=== PATIENT | female | born 1990 | race Caucasian/White ===

== ENCOUNTER → 2017-10-08 | Outpatient (CLI) | payer OTHER ==
[~2017-10-08] MED LIST: MULT-506 PO
== END | disposition home or self-care (01) ==
LOC: C.PAPS 16:22
PROVIDERS: ATTEND Obstetrics & Gynecology
DX: Z34.91 Encounter for supervision of normal pregnancy, unspecified, first trimester (principal)

== ENCOUNTER → 2017-10-08 | Outpatient (CLI) | payer OTHER ==
[2017-10-08 14:55] LABS: BASO % 0.2 %; BASO ABS # 0.02 K/uL (0-0.2); EOS % 0.2 %; EOS ABS # 0.02 K/uL (0-0.5); HEMATOCRIT 37.9 % (37-47); HEMOGLOBIN 13.4 g/dL (12.0-16.0); IG# 0.03 K/uL (0.00-0.02); LYMPH % 22.5 %; LYMPH ABS # 2.07 K/uL (1.2-3.4); MEAN CELL VOLUME 92.2 fL (80-100); MEAN CORPUSCULAR HEMOGLOBIN 32.6 pg (25-34); MEAN CORPUSCULAR HGB CONC 35.4 g/dl (32-36); MEAN PLATELET VOLUME 10.8 fL (7.4-10.4); MONO % 6.1 %; MONO ABS # 0.56 K/uL (0.11-0.59); NEUT % 70.7 %; NEUT ABS # 6.51 K/uL (1.4-6.5); PLATELET COUNT 324 K/uL (130-400); RED CELL DISTRIBUTION WIDTH CV 12.7 % (11.5-14.5); RED CELL DISTRIBUTION WIDTH SD 42.9 fL (36.4-46.3); WHITE BLOOD COUNT 9.21 K/uL (4.8-10.8)
== END | disposition home or self-care (01) ==
LOC: C.LAB1850 13:42
PROVIDERS: ATTEND Obstetrics & Gynecology
DX: Z34.91 Encounter for supervision of normal pregnancy, unspecified, first trimester (principal)

== ENCOUNTER → 2017-10-29 | Outpatient (CLI) | payer OTHER | END | disposition home or self-care (01) | LOC: C.LAB1850 10:52 | PROVIDERS: ATTEND Obstetrics & Gynecology | DX: Z34.92 Encounter for supervision of normal pregnancy, unspecified, second trimester (principal) ==

== ENCOUNTER → 2018-01-21 | Outpatient (CLI) | payer OTHER | END | disposition home or self-care (01) | LOC: C.LABSPEC 12:54 | PROVIDERS: ATTEND Obstetrics & Gynecology | DX: Z34.92 Encounter for supervision of normal pregnancy, unspecified, second trimester (principal) ==

== ENCOUNTER → 2018-01-21 | Outpatient (CLI) | payer OTHER ==
[2018-01-21 12:25] LABS: HEMATOCRIT 34.9 % (37-47); HEMOGLOBIN 12.1 g/dL (12.0-16.0)
== END | disposition home or self-care (01) ==
LOC: C.LAB1850 10:33
PROVIDERS: ATTEND Obstetrics & Gynecology
DX: Z34.92 Encounter for supervision of normal pregnancy, unspecified, second trimester (principal)

== ENCOUNTER → 2018-03-20 | Outpatient (CLI) | payer OTHER | END | disposition home or self-care (01) | LOC: C.LABSPEC 13:39 | PROVIDERS: ATTEND Obstetrics & Gynecology | DX: Z34.93 Encounter for supervision of normal pregnancy, unspecified, third trimester (principal) ==

== ENCOUNTER 2018-04-13 21:50 | Inpatient (IN) | payer OTHER ==
[~2018-04-13] VITALS: Ht 162.6 cm; Wt 86.4 kg
[2018-04-13] MEDS ORDERED: LACTATED RINGER'S 1000ML 1,000 ML IV PRN (22:10)
[2018-04-13] MEDS ORDERED: LACTATED RINGER'S 1000ML 1,000 ML IV SCH (22:10)
[2018-04-13] MEDS ORDERED: PENICILLIN G POTASSIUM IV 6 MU in DEXTROSE 5% 250ML 250 ML IV ONE (22:15)
[2018-04-13] MEDS ORDERED: BUTORPHANOL TARTRATE 1 MG/ML VIAL IV ONE (22:30)
[2018-04-13 22:37] VITALS: Ht 162.6 cm; Wt 86.4 kg
[2018-04-13 22:52] LABS: HEMATOCRIT 33.4 % (37-47); HEMOGLOBIN 11.5 g/dL (12.0-16.0); MEAN CELL VOLUME 92.8 fL (80-100); MEAN CORPUSCULAR HEMOGLOBIN 31.9 pg (25-34); MEAN CORPUSCULAR HGB CONC 34.4 g/dl (32-36); PLATELET COUNT 287 K/uL (130-400); RED CELL DISTRIBUTION WIDTH CV 13.7 % (11.5-14.5); RED CELL DISTRIBUTION WIDTH SD 46.2 fL (36.4-46.3); WHITE BLOOD COUNT 15.89 K/uL (4.8-10.8)
[2018-04-13] MEDS ORDERED: EpHEDrine SULFATE INJ 50 MG/ML AMP ONE (22:59)
[2018-04-13] MEDS ORDERED: BUPIVACAINE 0.25% 30 ML VIAL ONE (22:59)
[2018-04-13] MEDS ORDERED: FENTANYL CITRATE INJ 50 MCG/1 ML 2 ML VIAL ONE (23:00)
[2018-04-13] MEDS ORDERED: FENTANYL 2MCG/ML ROPIV 1.25MG/ML 100ML BAG ONE (23:01)
[2018-04-13] MEDS ORDERED: NALOXONE HCL INJ 1 MG in SODIUM CHLORIDE 0.9% 1000ML 1,000 ML IV PRN (23:59)
[2018-04-13] MEDS ORDERED: LACTATED RINGER'S 1000ML 500 ML IV PRN (23:59)
[2018-04-14] MEDS ORDERED: ONDANSETRON INJ 2 MG/ML 2 ML VIAL IV PRN
[2018-04-14] MEDS ORDERED: NALOXONE HCL INJ 0.4 MG/1 ML VIAL/CARP IV PRN
[2018-04-14] MEDS ORDERED: DiphenhydrAMINE HCL 50 MG/ML VIAL IV PRN
[2018-04-14] MEDS ORDERED: NALBUPHINE HCL INJ 10 MG/ML 1ML AMP IV PRN
[2018-04-14] MEDS ORDERED: EpHEDrine SULFATE INJ 50 MG/ML AMP IV PRN
[2018-04-14] MEDS: PENICILLIN G POTASSIUM IV 3 MU in DEXTROSE 5% 100ML 100 ML IV PRN ×2 (02:40→06:59)
[2018-04-14] MEDS: FENTANYL 2MCG/ML ROPIV 1.25MG/ML 100ML BAG EPI PRN ×2 (07:01→07:37)
[2018-04-14] MEDS ORDERED: OXYTOCIN 30 UNITS/500ML NSS IV ONE (07:15)
[2018-04-14] MEDS ORDERED: SUPERCREAM 0.870 % 15GM JAR EXT PRN (10:45)
[2018-04-14] MEDS ORDERED: LANOLIN OINT EXT PRN (10:45)
[2018-04-14] MEDS ORDERED: HYDROCORTISONE ACETATE 25 MG SUPP PR PRN (10:45)
[2018-04-14] MEDS ORDERED: OXYTOCIN 30 UNITS/500ML NSS IV PRN (10:45)
[2018-04-14] MEDS ORDERED: DIPHTHERIA/TETANUS/PERTUSSIS 0.5 ML SYR/VIAL IM. ONE (10:45)
[2018-04-14] MEDS ORDERED: ACETAMINOPHEN/CODEINE 300/30MG TAB PO PRN (10:45)
[2018-04-14] MEDS ORDERED: BENZOCAINE 20% AER SPR 82.5 GM CAN EXT PRN (10:45)
[2018-04-14] MEDS: IBUPROFEN 600 MG TAB PO PRN ×3 (11:38→21:07)
--- NOTE | 2018-04-14 11:45 | DELIVERY SUMMARY ---
DATE OF OPERATION: 04/14/2018 DATE OF DELIVERY: 04/14/2018. FINDINGS: Viable male with terminal meconium. Arterial and venous cord gases pending. Placenta delivered spontaneously and sent for pathological evaluation. Midline second-degree laceration repaired in routine fashion. LABOR NOTE: The patient was a 27-year-old 2, para 0 with EDC of 04/16/2018 of 39 plus weeks gestational age who presented to labor and delivery in active labor. Patient denied ruptured membranes or vaginal bleeding. The patient has had a benign course. Laboratory values for the showed blood type of A negative, antibody negative, rubella immune, hepatitis B negative. She had normal 1-hour Glucola and a positive third trimester beta strep culture. Upon admission, patient was 5-6 cm dilated in active labor of very uncomfortable with category 1 tracing. Anesthesia was consulted and an epidural was placed. The patient progressed to full dilatation, had artificial ruptured membranes of clear fluid. Patient had no sensation to push and was allowed to labor down for 2 hours. Patient began her second stage and pushed for approximately 1 hour but had return of sensation and then refused to push. Anesthesia was consulted and her epidural was re-bolused and after approximately 2-hour delay, the patient restarted her second stage. She pushed for an additional 2 hours, delivering a viable male infant. Terminal meconium was noted at delivery, cord was clamped and cut and the baby was taken over to the resuscitation stand. Cord gases, cord blood samples obtained. Placenta was delivered spontaneously and sent for pathological evaluation. Inspection of the perineum showed a midline second-degree laceration which was repaired with 4-0 and 2-0 Vicryl in a routine fashion. Estimated blood loss for the delivery was 300 mL. Sponge and needle count was correct. I attest to the content of the Intraoperative Record and any orders documented therein. Any exception s are noted below.
--- NOTE | 2018-04-14 12:36 | Anesthesia Procedure Note ---
Anesthesia Epidural Removal Nt Date & Time Apr 14, 2018 at 12:36 Notes Mental Status: alert / awake / arousable, participated in evaluation Nausea / Vomiting: adequately controlled Pain: adequately controlled Airway Patency, RR, SpO2: stable & adequate BP & HR: stable & adequate Hydration State: stable & adequate Neuraxial Anesthesia: was administered Anesthetic Complications: no major complications apparent, pt satisfied with anesthetic care Epidural: removed without complications, with tip intact
[2018-04-14 13:00] VITALS: BP 118/72; PULSE 113; TEMP 36.9
--- NOTE | 2018-04-14 13:15 | Discharge Instructions ---
Discharge Instructions Date of Service Apr 14, 2018. Admission Reason for Admission: Normal Labor, With 39 Completed Weeks Ge Discharge Discharge Diagnosis / Problem: Vaginal Delivery Discharge Goals Goal(s): Routine recovery after delivery Medications Continue Dispensed Medications: supercream, dermaplast, tucks Activity Recommendations Activity Limitations: per Instructions/Follow-up section . Instructions / Follow-Up Instructions / Follow-Up ACTIVITY RECOMMENDATIONS: * Gradual return to full activity over the next 2-3 weeks. * No lifting - nothing heavier than baby over the next 2-3 weeks. * Do not engage in vigorous exercise, sexual activity or sports until cleared by your physician. * Do not drive or operate any motorized equipment until cleared by your physician. * You may shower/bathe daily. MEDICATIONS: For discomfort or pain, you may use Acetaminophen (Tylenol), Ibuprofen (Advil), or Naproxen (Aleve) following the package directions. For constipation you may use Colace following the package directions. BREAST CARE: If you are not breast feeding: * Wear a supportive bra 24 hours a day for one to two weeks. * Avoid stimulating your breasts and nipples as much as possible during the first few weeks after delivery. * When taking a shower, have the warm water hit your back, not breasts. * When your breasts feel full, apply ice packs. Usually three to four times a day helps ease the discomfort. * Take a mild pain medication (Tylenol / Motrin) when you are uncomfortable. If breast feeding: * Use breast milk to lubricate nipples. Lansinoh cream may be used for sore nipples. You do not need to remove cream prior to breast feeding. If using a different brand of cream, check the label for directions regarding removal of cream prior to nursing. * Wear a supportive bra. * If having problems with breasts or breast feeding, call a reimbursement consultant or your health care provider. EPISIOTOMY CARE: After delivery, if you have an episiotomy (stitches), the following steps will ease discomfort and aid healing. * For the first 24 hours after delivery, place ice packs next to your episiotomy to help reduce swelling. * After the first 24 hour-period, sitz baths, either portable or in the tub, are suggested. A shower with a shower arm sprayed over the episiotomy may be comforting. * Charity care should be done after each voiding and bowel movement. Squirt warm water from a plastic bottle over the perineum (region of the body between the anus and urinary opening) and pat dry. * Use Dermoplast to ease discomfort. Shake container. [place] directly over the episiotomy. Place a Tucks on a clean sanitary pad next to your episiotomy. SPECIAL CARE INSTRUCTIONS: When you are discharged from the hospital, it is important for you to follow the instructions listed below: * During the first week at home, you should be able to care for yourself and your baby. In addition, the usual light household activities are encouraged. * Limit your activities to the way you feel. Do not try to clean the house or move furniture. Be sensible. * If you actively engage in sports and have done so up until the time of your delivery, you may resume these activities as soon as you feel able. This may take up to one month or even longer. Use good judgment. * Continue to take your vitamins for at least six weeks after the of your baby. * Your diet need not be limited unless you were on a special diet before your delivery. Breast-feeding mothers need around 2500 calories per day and at least 64-80 ounces of fluid per day (8 to 10 glasses). * You should eat foods from the four major food groups. Crash diets or fad diets are to be avoided. Eating lean meats, fresh fruits and vegetables, low-fat dairy products, high fiber foods and a regular exercise program, will help you get back to your pre- weight without putting your health at risk. * Constipation is sometimes a problem after delivery. Take a mild laxative as needed. If breast feeding, Milk of Magnesia is acceptable to use. You may use a suppository or Fleets enema if no episiotomy. * A daily shower or tub bath is suggested. Be sure to thoroughly and gently dry the perineum. * A bloody vaginal discharge will usually continue until around four weeks post . A small amount of bleeding may continue for as long as six weeks. Vaginal discharge changes from the bright red bleeding after delivery to pink then brownish and finally yellowish-pink before becoming white and disappearing. * Bleeding may increase with activity. Your first period may come in 4-8 weeks. If you are breast feeding, your period may be delayed even longer. * [place] (sex) can begin whenever both you and your partner feel comfortable and do not have any form of genital infection. It is recommended that you wait at least six weeks for internal and external healing to occur. If you have questions, please talk to your health care practitioner. A condom should be used to prevent infection and . * Foreplay, gentle intercourse and lubrication is very important the first several times to prevent pain. A water-based lubricant such as K-Y jelly or Astroglide may be used. * If you have RH negative blood and your baby is RH positive, you will receive RHOGAM by injection prior to discharge. The nurse will give you a card to keep with you that has the date and place that you received RHOGAM after delivery. * During your care, you had a Rubella screen done to check for the presence of rubella antibodies in your blood. If your test was negative, you will receive a Rubella vaccine prior to discharge. This vaccine may cause a fever, soreness at the injection site and flu-like symptoms. If these symptoms persist, notify your health care practitioner. is not advised for one month after a Rubella vaccine. * Verbalizes understanding of car seat law as reviewed with patient nursing. * Car Seat hand-out given and reviewed with patient by nursing. * Shaken baby information reviewed with patient by nursing. Call you doctor if: * Heavy bleeding (saturating several pads an hour) or passing clots the size of your fist. * A fever >101 degrees F (38.3 degrees C) on two occasions four hours apart and /or chills. * Unusual pain in the pelvic or vaginal areas. * "Baby Blues" lasting longer than two weeks. If you have any questions or concerns, call your health care practitioner at . FOLLOW UP VISIT: * Please call the office at to schedule a 6 week examination. It is important you keep this appointment. It is important for you to make arrangements for either yearly or twice yearly check-ups thereafter. Current Hospital Diet Patient's current hospital diet: Regular OB Diet Discharge Diet Recommended Diet: Regular OB Diet Pending Studies Studies pending at discharge: no Medical Emergencies . Who to Call and When: Medical Emergencies: If at any time you feel your situation is an emergency, please call 911 immediately. . Non-Emergent Contact Non-Emergency issues call your: [facility] Call Non-Emergent contact if: temperature is above 100.5 . . "Provider Documentation" section prepared by Oscar Clark. .
[2018-04-14 16:30] VITALS: BP 98/67; PULSE 92; TEMP 36.5
[2018-04-14] MEDS: DOCUSATE SODIUM 100 MG CAP PO SCH (19:51)
[2018-04-14] MEDS: ACETAMINOPHEN 325 MG TAB PO PRN (19:54)
[2018-04-14 20:00] VITALS: BP 109/78; PULSE 93; TEMP 36.4
[2018-04-14 23:35] VITALS: BP 113/78; PULSE 86; TEMP 36.4; O2SAT 99
[2018-04-14] MEDS: ACETAMINOPHEN/CODEINE 300/30MG TAB PO PRN (23:36)
[2018-04-15] MEDS: IBUPROFEN 600 MG TAB PO PRN ×4 (02:51→19:56)
[2018-04-15 04:20] VITALS: BP 115/80; PULSE 89; TEMP 36.6; O2SAT 99
[2018-04-15] MEDS: ACETAMINOPHEN/CODEINE 300/30MG TAB PO PRN ×2 (04:43→21:34)
[2018-04-15 07:06] LABS: HEMOGLOBIN 9.7 g/dL (12.0-16.0)
--- NOTE | 2018-04-15 07:29 | Progress Note ---
Subjective Apr 15, 2018. Subjective conversation w/ patient, physical exam Ambulation: ambulating normally Voiding: no voiding problems Diet Tolerance: Regular Diet Feeding Type: Bottle Feeding Pain: Improving Review of Systems Constitutional: No fever, No chills, No sweats Respiratory: No cough, No sputum, No wheezing Cardiac: No chest pain, No edema, No palpitations Abdomen: No diarrhea Female : No incontinence Objective Vital Signs Date Time Temp Pulse Resp B/P (MAP) Pulse Ox O2 Delivery O2 Flow Rate FiO2 04/15/18 04:20 36.6 89 20 115/80 (92) 99 Room Air 04/14/18 23:35 99 Room Air 04/14/18 23:35 36.4 86 20 113/78 (90) 99 Room Air 04/14/18 20:00 36.4 93 20 109/78 (88) Room Air 04/14/18 16:30 36.5 92 18 98/67 (77) Room Air 04/14/18 16:30 Room Air 04/14/18 13:00 Room Air 04/14/18 13:00 36.9 113 16 118/72 (87) Room Air Physical Exam General Appearance: WELL-APPEARING, NO APPARENT DISTRESS Fundus: Firm, Relation to Umbilicus (below) Extremities: no calf tenderness Laboratory Results Last 24 Hours Test 04/15/18 06:48 Hemoglobin 9.7 g/dL Hematocrit 29.0 % Assessment and Plan Day#: 1 Continue Routine Care: 27 y old PPD#1 s/p - Patient doing well - AFVSS - Hgb 9.7 no si/sx - Bottle Feeding - Patient desires discharge, will reassess in the afternoon Resident Physician Supervision Note: I interviewed and examined the patient. Discussed with Dr. Clark and agree with findings and plan as documented in the note. Any exceptions or clarifications are listed here: Patient doing well, desires early d/c after 24 hours,will re-access after 24 hours Documented By: Dagoberto Dixon Resident Tracking Resident Involvement: Resident Care Provided Care Provided: Adult Hospital Medicine
[2018-04-15 08:00] VITALS: BP 112/76; PULSE 89; TEMP 36.6; O2SAT 99
[2018-04-15] MEDS: PRENATAL VITAMIN TAB PO SCH (08:13)
[2018-04-15] MEDS: DOCUSATE SODIUM 100 MG CAP PO SCH ×2 (08:13→19:56)
[2018-04-15] MEDS: FERROUS SULFATE 325 MG TAB PO SCH (08:13)
[2018-04-15] MEDS: ACETAMINOPHEN 325 MG TAB PO PRN ×2 (10:20→16:34)
[2018-04-15 16:00] VITALS: BP 132/79; PULSE 92; TEMP 36.7; O2SAT 99
[2018-04-15] MEDS ORDERED: BISACODYL 5 MG TABEC PO SCH (20:00)
[2018-04-15 20:10] VITALS: BP 118/70; PULSE 84; TEMP 36.7
[2018-04-16 00:55] VITALS: BP 115/71; PULSE 99; TEMP 36.8; O2SAT 99
--- NOTE | 2018-04-16 07:08 | Progress Note ---
Subjective Apr 16, 2018. Subjective conversation w/ patient, physical exam Ambulation: ambulating normally Voiding: no voiding problems Passing Gas: Yes Diet Tolerance: Regular Diet [place]: Moderate Feeding Type: Bottle Feeding Pain: improving Review of Systems Constitutional: No fever, No chills, No sweats Respiratory: No cough, No sputum, No wheezing Cardiac: No chest pain, No palpitations Abdomen: + constipation (feels like she has to go), No pain, No nausea, No vomiting Female : + dysuria Objective Vital Signs Date Time Temp Pulse Resp B/P (MAP) Pulse Ox O2 Delivery O2 Flow Rate FiO2 04/16/18 00:55 36.8 99 18 115/71 (86) 99 Room Air 04/16/18 00:55 99 Room Air 04/15/18 20:10 36.7 84 18 118/70 (86) Room Air 04/15/18 16:00 99 Room Air 04/15/18 16:00 36.7 92 20 132/79 (96) 99 Room Air 04/15/18 08:00 36.6 89 18 112/76 (88) 99 Room Air Physical Exam General Appearance: WELL-APPEARING, NO APPARENT DISTRESS Cardiovascular: regular rate, rhythm, no murmur Abdomen: normal bowel sounds Fundus: Firm, Relation to Umbilicus (below) Extremities: non-tender, no calf tenderness Laboratory Results Last Resulted 04/13/18 22:15 04/15/18 06:48 Medications Current Inpatient Medications Medications (Trade) Dose Ordered Sig/Miranda Route Start Time Stop Time Status Last Admin Dose Admin Oxytocin (Pitocin IV) 30 units UD PRN IV 04/14/18 10:45 05/14/18 10:44 04/14/18 11:37 30 UNITS Benzocaine (Dermoplast Aero Spr) 1 appln PRN PRN EXT 04/14/18 10:45 05/14/18 10:44 04/14/18 19:51 1 APPLN Cocaine HCl (Supercream 0.870% Cr) BID PRN EXT 04/14/18 10:45 04/28/18 10:44 Hydrocortisone Acetate (Anusol Hc Supp) 25 mg BID PRN GA 04/14/18 10:45 05/14/18 10:44 Lanolin (Lanolin Oint) PRN PRN EXT 04/14/18 10:45 05/14/18 10:44 Prenat Multivit/ Ab Initio Etl Developer/Iron/Folic Ac ( Vitamin Tab) 1 tab DAILY PO 04/15/18 08:00 05/15/18 07:59 04/15/18 08:13 1 TAB Ibuprofen (Motrin Tab) 600 mg Q4H PRN PO 04/14/18 10:45 05/14/18 10:44 04/15/18 19:56 600 MG Acetaminophen (Tylenol Tab) 650 mg Q6H PRN PO 04/14/18 10:45 05/14/18 10:44 04/15/18 16:34 650 MG Acetaminophen/ Codeine Phosphate (Tylenol w/ Codeine #3 Tab) 1 tab Q4H PRN PO 04/14/18 10:45 05/14/18 10:44 04/15/18 21:34 1 TAB Acetaminophen/ Codeine Phosphate (Tylenol w/ Codeine #3 Tab) 2 tab Q4H PRN PO 04/14/18 10:45 05/14/18 10:44 Docusate Sodium (coLACE CAP) 100 mg BID PO 04/14/18 20:00 05/14/18 19:59 04/15/18 19:56 100 MG Ferrous Sulfate (Feosol Tab) 325 mg DAILY PO 04/15/18 08:00 05/15/18 07:59 04/15/18 08:13 325 MG Assessment and Plan Day#: 2 Continue Routine Care: 27 yo PPD1 s/p -AFVSS, Pt doing well resting comfortably -F/U CBC HGB 9.7 down from 11.5 appropriate s/p delivery, no si/sx -Plan is to bottle feed -Tolerating regular diet -Continue to encourage ambulation -Routine care -Provided Discharge Counseling regarding vaginal bleeding, fever , f/u 6 weeks, no heavy lifting for 2-3 weeks, breast feeding, taking pre-rajesh vitamin, intercourse Resident Physician Supervision Note: I interviewed and examined the patient. Discussed with Dr. Clark and agree with findings and plan as documented in the note. Any exceptions or clarifications are listed here: [None] Documented By: Gina Esqueda Resident Tracking Resident Involvement: Resident Care Provided Care Provided: Adult [facility]
[2018-04-16] MEDS: PRENATAL VITAMIN TAB PO SCH (07:22)
[2018-04-16] MEDS: FERROUS SULFATE 325 MG TAB PO SCH (07:22)
[2018-04-16] MEDS: IBUPROFEN 600 MG TAB PO PRN (07:22)
[2018-04-16] MEDS: DOCUSATE SODIUM 100 MG CAP PO SCH (07:22)
[2018-04-16 07:30] VITALS: BP 118/82; PULSE 82; TEMP 36.4
[2018-04-16] MEDS: ACETAMINOPHEN 325 MG TAB PO PRN (11:01)
[2018-04-16 11:30] VITALS: BP 126/83; PULSE 90; TEMP 36.7
[2018-04-16 13:30] VITALS: BP_DIAS 83; PULSE 90; TEMP 36.7
== END 2018-04-16 13:35 | disposition home or self-care (01) | DRG 775 ==
LOC: C.OPB 21:50 → C.LD 21:51 → C.OPB 22:12 → C.OBG 04-14 13:24 → EDSTATUS 04-15 21:49
PROVIDERS: ADMIT Obstetrics & Gynecology; ATTEND Obstetrics & Gynecology
PROC: 0KQM0ZZ Repair Perineum Muscle, Open Approach (ICD-10-PCS; principal; 2018-04-14)
PROC: 10E0XZZ Delivery of Products of Conception, External Approach (ICD-10-PCS; principal; 2018-04-14)
DX: O77.0 Labor and delivery complicated by meconium in amniotic fluid (principal); O99.824 Streptococcus B carrier state complicating childbirth; O70.1 Second degree perineal laceration during delivery; Z3A.39 39 weeks gestation of pregnancy; Z37.0 Single live birth